=== PATIENT | female | born 1970 | race Hispanic/Latino ===

== ENCOUNTER → 2023-08-06 09:37 | Outpatient (CLI) | payer OTHER, SELFPAY ==
[2023-08-06 10:32] LABS: Add Manual Diff / Slide Review NO; Basophils Absolute Auto 100 /uL (0-100); Basophils Percent Auto 1.1 % (0-2); Eosinophils Absolute Auto 200 /uL (0-450); Eosinophils Percent Auto 2.1 % (2-4); Hematocrit 38.8 % (36-46); Hemoglobin 13.4 g/dL (12.0-16.0); Lymphocytes Absolute Auto 3900 /uL (1100-4500); Lymphocytes Percent Auto 41.7 % (25-40); Mean Corpuscular HGB Conc 34.6 % (30-36); Mean Corpuscular Hemoglobin 31.3 PG (26-34); Mean Corpuscular Volume 90.4 fL (80-100); Monocytes Absolute Auto 700 /uL (0-900); Monocytes Percent Auto 7.7 % (3-14); Neutrophils Absolute Auto 4400 /uL (1500-7000); Neutrophils Percent Auto 47.4 % (50-75); Platelet Count 277 X10^3/uL (150-400); Red Blood Cell Count 4.29 X10^6/uL (4.0-5.2); Red Cell Distribution Width 14.2 % (11.6-14.8); White Blood Cell Count 9.3 X10^3/uL (4.5-11.0)
[2023-08-06 10:47] LABS: Cholesterol 196 mg/dL (140-199); HDL Cholesterol 46 mg/dL (40-60); LDL Cholesterol Calculated 124 mg/dL (<100); Triglycerides 130 mg/dL (35-150)
== END ==
LOC: LAB 09:41
PROVIDERS: Family Provider Physician Assistant; PCP Family Medicine; Referring Provider Family Medicine; Visit Provider Family Medicine
DX: Z00.00 Encounter for general adult medical examination without abnormal findings (principal); Z13.220 Encounter for screening for lipoid disorders; M06.9 Rheumatoid arthritis, unspecified; B35.1 Tinea unguium
CPT/HCPCS: 36415; 80061; 85025

== ENCOUNTER → 2023-09-03 11:08 | Outpatient (CLI) | payer OTHER, SELFPAY ==
--- NOTE | 2023-09-03 11:10 | DI.MG.S_ITS ---
BILATERAL DIGITAL SCREENING MAMMOGRAM 3D/2D WITH CAD: 09/03/2023 CLINICAL: Routine screening. Comparison is made to exams dated: 08/28/2022 mammogram - [facility], 06/11/2017 mammogram, and 06/08/2015 mammogram - [facility]. Both breasts are heterogeneously dense, which may obscure small masses (category c / 51-75% glandular tissue). Current study was also evaluated with a Computer Aided Detection (CAD) system. No significant masses, calcifications, or other findings are seen in either breast. There has been no significant interval change. IMPRESSION: NEGATIVE There is no mammographic evidence of malignancy. A 1 year screening mammogram is recommended. Based on the Tyrer Cuzick model (a risk assessment model) the patient's lifetime risk is 7.9% and her 10 year risk is 2.0%. According to the ACR, ACS, and NCCN guidelines, an annual breast MRI exam along with mammogram is recommended if the patient's lifetime risk is 20% or greater. This exam was interpreted at Station ID: [id number]. NOTE: For mammograms, a report in lay terms will be sent to the patient. Approximately 15% of breast malignancies will not be visualized mammographically. In the management of a palpable breast mass, a negative mammogram must not discourage biopsy of a clinically suspicious lesion. Electronically Signed By: Jolynn carballo/ann:09/03/2023 12:11:52 letter sent: Normal Exam ACR BI-RADS Category 1: Negative 3341F
== END ==
LOC: MAMMO 11:09
PROVIDERS: Family Provider Physician Assistant; PCP Family Medicine; Referring Provider Family Medicine; Visit Provider Family Medicine
DX: Z12.31 Encounter for screening mammogram for malignant neoplasm of breast (principal); R92.333 Mammographic heterogeneous density, bilateral breasts
CPT/HCPCS: 77063; 77067

== ENCOUNTER 2023-11-20 11:57 | Day surgery (SDC) | payer OTHER, SELFPAY ==
[2023-11-20 13:22] VITALS: BP 107/77; PULSE 60; RESP 16; TEMP 36.9; O2SAT 100
[2023-11-20] MEDS: LACTATED RINGERS 1,000 ML 42 ML IV (13:27)
--- NOTE | 2023-11-20 13:37 | PM.HP.1 ---
History of Present Illness History of Present Illness Date Patient Seen: 11/20/23 Time Patient Seen: 13:37 Chief complaint: Screening Colonoscopy Narrative: 53-year-old Iraqi-speaking woman here for routine 1st time screening colonoscopy. No family history of intestinal malignancy. No abdominal concerns today. [facility] Medical History (Updated 08/20/23 @ 20:49 by Susanna Elizalde) Arthritis Carpal tunnel syndrome Rheumatoid arthritis Social History Smoking Status: Never smoker alcohol intake: never Meds Home Medications and Allergies Home Medications Medication Instructions Recorded Confirmed Type dexamethasone 2 mg tablet 2 mg PO DAILY 08/06/23 11/20/23 History folic acid 1 mg tablet 1 mg PO DAILY 08/06/23 11/20/23 History methotrexate sodium 2.5 mg tablet 2.5 mg PO QWEEK 08/06/23 11/20/23 History terbinafine HCl 250 mg tablet 250 mg PO DAILY #30 tabs 08/06/23 11/20/23 Rx peg 3350-electrolytes 236 240 ml PO Q10M #4,000 mL 10/31/23 11/19/23 Rx gram-22.74 gram-6.74 gram-5.86 gram solution (Golytely) Allergies Allergy/AdvReac Type Severity Reaction Status Date / Time No Known Allergies Allergy Verified 11/20/23 13:12 Exam Vital Signs (past 8 hours): - 11/20/23 13:22 Temperature 98.4 F Pulse Rate 60 Respiratory Rate 16 Blood Pressure 107/77 Pulse Oximetry 100 Oxygen Delivery Method Room Air Oxygen Delivery Method Room Air Narrative Exam Narrative: General adult woman alert oriented no acute distress Chest nonlabored respiration Extremities warm well perfused Assessment & Plan Assessment & Plan narrative: The patient requires colorectal screening and colonoscopy is recommended. Technical details were discussed. Risks, benefits, alternatives explained. Risks including but not limited to myocardial infarction, aspiration, bleeding, pain, missed lesion, incomplete examination, need for further radiographic studies, intestinal injury, and need for major abdominal surgery were discussed. All questions were answered to their satisfaction, and they are in agreement with this plan.
[2023-11-20 14:35] VITALS: BP 101/73; PULSE 73; RESP 20; TEMP 36.2; O2SAT 97
[2023-11-20 14:40] VITALS: BP 107/71; PULSE 77; RESP 24; O2SAT 97
--- NOTE | 2023-11-20 14:40 | P.OP.COLON_ITS ---
Operative Date/Time/Diagnoses Date of procedure: 11/20/23 Time of procedure: 14:40 Pre-op diagnosis: Colorectal screening Procedure & Clinicians Study performed: Screening colonoscopy Same procedure as scheduled: Yes Indications: Colorectal screening Surgeon: Juan Sanchez Procedure Notes Procedure in detail: The history and physical was performed/updated and the patient is ASA class is 2. The procedure was discussed in detail with the patient. Potential risks co mplications including infection, bleeding, missed diagnosis, perforation, need for surgery, and were explained. Their questions were answered and informed consent was obtained. Patient was brought to the procedure room and placed standard monitoring equipment. The patient's vital signs were monitored continuously throughout the entire procedure. Prior to starting time-out was performed. The patient was placed in the left lateral recumbent position. Procedural sedation was administered by anesthesia. Examination began with a thorough inspection of the perianal area there was no evidence of fissures, fistulae, external hemorrhoids or cutaneous malignancy. The colonoscopy scope was then placed into the anal canal and was advanced to the cecum, which was identified by the ileocecal valve, the appendiceal orifice and the confluence of the taenia. The scope was then slowly withdrawn examining colon thoroughly in all directions, irrigating it of any residual stool. The scope was retroflexed within the rectum The patient tolerated the procedure well. They will be discharged once criteria are met. The prep was of good/excellent quality. The withdrawl time was 7 minutes. FINDINGS * Unremarkable colonoscopy. No masses, polyps, inflammation. Normal healthy colonic mucosa * Internal hemorrhoids Specimen(s): none sent Impression: Normal colonoscopy Post-procedure Recommendations: Colonoscopy in 10 years Disposition: same day surgery
[2023-11-20 14:46] VITALS: BP 104/73; PULSE 69; RESP 20; TEMP 36.4; O2SAT 97
== END 2023-11-20 15:12 | disposition home or self-care (01) ==
PROVIDERS: Family Provider Physician Assistant; PCP Family Medicine; Referring Provider Surgery; Visit Provider Surgery
PROC: 0DJD8ZZ Inspection of Lower Intestinal Tract, Via Natural or Artificial Opening Endoscopic (ICD-10-PCS; CPT 45378; principal; 2023-11-20 14:00)
DX: Z12.11 Encounter for screening for malignant neoplasm of colon (principal); K64.8 Other hemorrhoids
CPT/HCPCS: 45378

== ENCOUNTER → 2025-05-29 08:35 | Outpatient (CLI) | payer BC, OTHER, SELFPAY ==
--- NOTE | 2025-05-29 08:39 | DI.US.S_ITS ---
US breast LT limited, MM diagnostic mammo BI: 05/29/2025 BI-RADS: 3 CLINICAL: 54-year old female for bilateral diagnostic mammogram and left diagnostic breast ultrasound. Tyrer-Cuzick lifetime risk of 5.4%. No personal or first- degree family history of breast cancer. The patient reports nonfocal pain (less than 1 month) in the left breast. PRIOR EXAMS 09/03/2023, 08/28/2022, 06/11/2017, 06/08/2015. MAMMOGRAPHY TECHNIQUE: 2D and 3D (tomosynthesis) digital mammographic views obtained, with additional images as needed for full coverage. Current study was also evaluated with a Computer Aided Detection (CAD) system. ULTRASOUND TECHNIQUE Real-time matthews scale and color doppler imaging of the area of clinical interest was performed with image documentation. TARGETED Left Breast Ultrasound: Real-time ultrasound exam was performed focused to area of clinical and/or imaging concern. DENSITY C. The breasts are heterogeneously dense, which may obscure small masses. MAMMOGRAPHY FINDINGS Right: No suspicious mass, asymmetry, microcalcification, or other abnormality seen. Left: Outer Central, Posterior depth, measuring 0.9cm: There is a focal asymmetry present. This is an incidental finding. ULTRASOUND FINDINGS Left: Outer at 3:00, Retroareolar: There is no sonographic abnormality to account for imaging concern on mammography. IMPRESSION: Right * No evidence of malignancy. Left (Asymmetry): Outer Central, Posterior depth, measuring 0.9cm * Probably Benign. RECOMMENDATIONS Left: Outer Central, Posterior depth * Six month followup with diagnostic mammography and diagnostic ultrasound. Ultrasound to be performed only if needed. Left * Diffuse, non-focal symptoms, such as pain or fullness are typically benign. Clinical follow-up is recommended, and further management of these symptoms should be based on the results of clinical evaluation. If diffuse symptoms persist or become more focal in nature, further clinical evaluation should be considered. COMMENTS: Findings and recommendations were conveyed to the patient during today's evaluation. OVERALL ASSESSMENT CATEGORY BI-RADS-3: Probably Benign. ELECTRONICALLY SIGNED: Sushila Méndez M.D. on 05/29/2025 at 04:13:38 PM PT Interpreting Station ID: [id number]
== END ==
LOC: MAMMO 08:38
PROVIDERS: PCP Family Medicine; Referring Provider Family Medicine; Visit Provider Family Medicine
DX: N64.4 Mastodynia (principal); R92.333 Mammographic heterogeneous density, bilateral breasts; N64.89 Other specified disorders of breast
CPT/HCPCS: 76642; 77066; G0279